=== PATIENT | female | born 2005 | race Caucasian/White ===

== ENCOUNTER → 2023-04-17 | Outpatient (REF) | LOC: M EMP 09:54 | PROVIDERS: ATTEND Family Medicine | DX: Z11.52 Encounter for screening for COVID-19 (principal) ==

== ENCOUNTER 2024-02-28 07:30 | Emergency (ER) | payer OTHER ==
[2024-02-28 09:51] LABS: APPEARANCE, URINE HAZY (CLEAR); BACTERIA, URINE AUTO 1+ (NEGATIVE); BILIRUBIN, URINE AUTO NEGATIVE (NEGATIVE); BLOOD, URINE BLOOD 2+ (NEGATIVE); COLOR, URINE YELLOW (YELLOW); GLUCOSE, URINE (UA) AUTO NEGATIVE (NEGATIVE); KETONE, URINE AUTO 1+ mg/dL (NEGATIVE); LEUKOCYTE ESTERASE, URINE AUTO NEGATIVE (NEGATIVE); MUCUS, URINE SMALL (NEGATIVE); NITRITE, URINE AUTO NEGATIVE (NEGATIVE); PROTEIN, URINE AUTO NEGATIVE (NEGATIVE); RBC, URINE AUTO 2 /HPF (0-3); SPECIFIC GRAVITY URINE AUTO 1.016 (1.002-1.035); SQUAMOUS EPITHELIAL CELL UR AU 1 /HPF (0-6); UROBILINOGEN, URINE AUTO 0.2 mg/dL (0.0-2.0); WBC, URINE AUTO 7 /HPF (0-3)
[2024-02-28 09:57] LABS: BASO % 0.2 % (0.0-1.0); EOS # 0.1 10^3/uL (0.0-0.5); EOS % 0.6 % (0.0-3.0); HEMATOCRIT 43.8 % (36.0-47.0); HEMOGLOBIN 15.1 g/dl (12.0-15.5); LYMPH # 2.1 10^3/uL (1.5-5.0); LYMPH % 19.1 % (24.0-44.0); MEAN CORPUSCULAR HEMOGLOBIN 29.3 pg (27.0-33.0); MEAN CORPUSCULAR HGB CONC 34.5 g/dl (32.0-36.5); MEAN CORPUSCULAR VOLUME 84.9 fl (80.0-96.0); MONO # 0.6 10^3/uL (0.0-0.8); MONO % 5.3 % (2.0-8.0); NEUTROPHILS % 74.5 % (36.0-66.0); PLATELET COUNT, AUTOMATED 270 10^3/uL (150-450); RED BLOOD COUNT 5.16 10^6/uL (4.00-5.40); WHITE BLOOD COUNT 10.8 10^3/uL (4.0-10.0)
[2024-02-28] MEDS ORDERED: CEFD300C PO (10:09)
[2024-02-28 10:46] VITALS: BP 106/68; TEMP 98.1; O2SAT 95
== END 2024-02-28 10:50 | disposition home or self-care (01) ==
LOC: M ED 07:30
DX: O20.8 Other hemorrhage in early pregnancy (principal); O23.42 Unspecified infection of urinary tract in pregnancy, second trimester; Z3A.14 14 weeks gestation of pregnancy; O44.02 Complete placenta previa NOS or without hemorrhage, second trimester; Z88.1 Allergy status to other antibiotic agents; Z88.8 Allergy status to other drugs, medicaments and biological substances; Z91.040 Latex allergy status

== ENCOUNTER → 2024-03-25 | Outpatient (REF) | payer OTHER ==
[~2024-03-25] MED LIST: CEFD300C PO
== END ==
LOC: M PLALAB 10:40
PROVIDERS: ATTEND Nurse Practitioner Family
DX: R30.0 Dysuria (principal)

== ENCOUNTER → 2024-04-04 | Outpatient (CLI) | payer OTHER | LOC: M LAB 06:40 | PROVIDERS: ATTEND Nurse Practitioner Family | DX: Z31.5 Encounter for procreative genetic counseling (principal) ==

== ENCOUNTER → 2024-04-15 | Outpatient (CLI) | payer OTHER | LOC: M WHC 09:37 → MERGE 10:15 | PROVIDERS: ATTEND Nurse Practitioner Family | DX: Z34.82 Encounter for supervision of other normal pregnancy, second trimester (principal); Z3A.21 21 weeks gestation of pregnancy ==

== ENCOUNTER 2024-05-07 17:38 | Emergency (ER) | payer OTHER ==
[~2024-05-07] VITALS: Ht 175.3 cm; Wt 92.2 kg
[2024-05-07 17:41] VITALS: BP 130/85; TEMP 96.8; O2SAT 100
[2024-05-07] MEDS ORDERED: ANTA1CHW6 PO (18:57)
[2024-05-07] MEDS ORDERED: PRENTAB9 PO (18:57)
== END 2024-05-07 18:34 | disposition admitted as inpatient to this hospital (09) ==
LOC: M ED 17:38
DX: Z53.21 Procedure and treatment not carried out due to patient leaving prior to being seen by health care provider (principal)

== ENCOUNTER 2024-05-07 18:15 | Outpatient (CLI) | payer OTHER ==
[~2024-05-07] VITALS: Ht 175.3 cm; Wt 92.3 kg
[2024-05-07 18:30] VITALS: BP 115/70
[2024-05-07] MEDS ORDERED: ANTA1CHW6 PO (18:57)
[2024-05-07] MEDS ORDERED: PRENTAB9 PO (18:57)
[2024-05-07] MEDS ORDERED: HOME MED LIST COMPLETE! XX SCH (19:00)
[2024-05-07 19:07] LABS: HEMATOCRIT 38.3 % (36.0-47.0); MEAN CORPUSCULAR HEMOGLOBIN 29.7 pg (27.0-33.0); MEAN CORPUSCULAR HGB CONC 33.9 g/dl (32.0-36.5); MEAN CORPUSCULAR VOLUME 87.4 fl (80.0-96.0); PLATELET COUNT, AUTOMATED 269 10^3/uL (150-450); RED BLOOD COUNT 4.38 10^6/uL (4.00-5.40); WHITE BLOOD COUNT 15.2 10^3/uL (4.0-10.0)
[2024-05-07 19:20] LABS: INR 0.99; PARTIAL THROMBOPLASTIN TIME 28.2 SECONDS (24.8-34.2); PROTHROMBIN TIME 13.4 SECONDS (12.5-14.5)
== END 2024-05-07 20:30 | disposition home or self-care (01) ==
LOC: M LDO 18:15
PROVIDERS: ATTEND Advanced Practice Midwife
DX: O26.892 Other specified pregnancy related conditions, second trimester (principal); W19.XXXA Unspecified fall, initial encounter; Z3A.24 24 weeks gestation of pregnancy; Y92.9 Unspecified place or not applicable; Y93.9 Activity, unspecified; Y99.9 Unspecified external cause status; Z84.81 Family history of carrier of genetic disease
CPT/HCPCS: 36415; 59025; 85027; 85384; 85460; 85610; 85730; G0463

== ENCOUNTER → 2024-05-26 | Outpatient (CLI) | payer OTHER ==
[~2024-05-26] MED LIST changes: +ANTA1CHW6 PO; +PRENTAB9 PO
[2024-05-26 18:33] LABS: HEMATOCRIT 42.6 % (36.0-47.0); HEMOGLOBIN 13.7 g/dl (12.0-15.5); MEAN CORPUSCULAR HGB CONC 32.2 g/dl (32.0-36.5); MEAN CORPUSCULAR VOLUME 90.3 fl (80.0-96.0); PLATELET COUNT, AUTOMATED 285 10^3/uL (150-450); RED BLOOD COUNT 4.72 10^6/uL (4.00-5.40); WHITE BLOOD COUNT 12.8 10^3/uL (4.0-10.0)
[2024-05-26 18:39] LABS: GLUCOSE CHALLENGE TEST 1 HOUR 84 MG/DL (LESS THAN 140)
[2024-05-26 19:05] LABS: HIV 1&2 SCREEN NEGATIVE (NEGATIVE)
[2024-05-26 19:13] LABS: HEPATITIS C VIRUS ABY INDEX 0.11 INDEX (<0.8)
[2024-05-26 20:01] LABS: GC DNA AMPLIFICATION NEGATIVE (NEGATIVE)
== END ==
LOC: M PLALAB 14:12
PROVIDERS: ATTEND Specialist
DX: Z34.82 Encounter for supervision of other normal pregnancy, second trimester (principal); Z3A.00 Weeks of gestation of pregnancy not specified

== ENCOUNTER → 2024-05-27 | Outpatient (CLI) | payer OTHER | LOC: M WHC 11:04 | PROVIDERS: ATTEND Specialist | DX: O32.1XX0 Maternal care for breech presentation, not applicable or unspecified (principal); Z3A.26 26 weeks gestation of pregnancy ==

== ENCOUNTER → 2024-06-20 | Outpatient (CLI) | payer OTHER | LOC: M WHC 12:52 | PROVIDERS: ATTEND Obstetrics & Gynecology | DX: Z36.2 Encounter for other antenatal screening follow-up (principal); Z3A.30 30 weeks gestation of pregnancy ==

== ENCOUNTER → 2024-08-08 | Outpatient (REF) | payer OTHER | LOC: M LAB REF 19:56 | PROVIDERS: ATTEND Physician Assistant | DX: N61.0 Mastitis without abscess (principal) ==

== ENCOUNTER → 2025-02-27 | Outpatient (REF) | payer OTHER | LOC: M SFHCWAGY 13:20 | PROVIDERS: ATTEND Physician Assistant | DX: N89.8 Other specified noninflammatory disorders of vagina (principal) ==